=== PATIENT | female | born 1965 | race Caucasian/White ===

== ENCOUNTER → 2020-03-16 12:29 | Outpatient (CLI) | payer OTHER, SELFPAY ==
--- NOTE | ~2020-03-16 | MM_ITS ---
EXAMINATION: MM screening [facility] BI w jose david HISTORY: Screening TECHNIQUE: Craniocaudal and mediolateral oblique 3-D tomosynthesis images were obtained and synthetic 2-D images were generated. CAD analysis was submitted and interpreted. COMPARISON: Comparison to multiple prior studies sequentially, with oldest reviewed study dated 08/04. BREAST PARENCHYMAL COMPOSITION: The breasts are extremely dense, which lowers the sensitivity of mamm ography. FINDINGS: There is a radiolucent mass in the upper inner quadrant of the right breast which is obscur ed by dense fibroglandular tissue. There is focal asymmetry medially in the left breast on CC view. IMPRESSION: 1. Right breast mass, upper inner quadrant. Focal left breast asymmetry medially. 2. Additional mammographic views and possible breast ultrasound are recommended. BI-RADS Category 0: Incomplete: Needs additional imaging evaluation. Reviewed, dictated and finalized at location A. IMPRESSION: 1. Right breast mass, upper inner quadrant. Focal left breast asymmetry mediall y. 2. Additional mammographic views and possible breast ultrasound are recommended . BI-RADS Category 0: Incomplete: Needs additional imaging evaluation.
--- NOTE | ~2020-03-16 | DEXA_ITS ---
Bone Density Report Name: Angela Sawyer Age: 54 Sex: Female Ethnicity: White Date of : 1965 Indication: postmenopausal; screening for osteoporosis; height loss; prior fracture; Referring Provider: HARVEY DEE Study: Bone densitometry was performed. Exam Date: March 16, 2020 Accession number: [id number] Bone Density: Region BMD T-score Z-score Classification AP Spine (L1-L4) 0.883 -1.5 -0.4 Osteopenia Femoral Neck (Left) 0.711 -1.2 -0.2 Osteopenia Total Hip (Left) 0.874 -0.6 0.1 Normal Femoral Neck (Right) 0.729 -1.1 0.0 Osteopenia Total Hip (Right) 0.878 -0.5 0.1 Normal Total Hip Mean 0.876 -0.6 0.1 Normal World Health Organization criteria for BMD impression classify patients as: Normal (T-score at or above -1.0), Osteopenia (T-score between -1.0 and -2.5), or Osteoporosis (T-score at or below -2.5). 10-year Fracture Risk: FRAX not reported because: Prior hip or vertebral fracture Treated for osteoporosis Clinical Information Provided by Patient: Have had a previous hip or vertebral fracture Has had a low trauma fracture Is being treated for osteoporosis Has used the following medications: HRT (i.e. estrogen/hormone therapy), Vitamin D, Calcium Patient maximum height was 69 Menopause Age: 53 No regular weight bearing exercise Drinks caffeinated beverages Onset of menses at age 13 Number of children 0 Impression: The patient has low bone mass, based on the Total Spine T-score. The patient has risk factors, including: previous fracture. Discussion: It is important to ask patients whether they are taking their medications and to encourage continued and appropriate compliance with their osteoporosis therapies to reduce fracture risk. It is also important to review their risk factors and encourage appropriate calcium and vitamin D intakes, exercise, fall prevention and other lifestyle measures. Follow-Up: Consider a repeat BMD and Vertebral Fracture Assessment (VFA) exam in 2 years or sooner if medically necessary, to reassess this patient's status. Reported by: RAJWINDER on 03/16/2020 1:14:00 PM. Reviewed, dictated and finalized at location A.
== END ==
PROVIDERS: PCP Family Medicine; Visit Provider Obstetrics & Gynecology Gynecology
DX: Z12.31 Encounter for screening mammogram for malignant neoplasm of breast (principal); Z78.0 Asymptomatic menopausal state; R92.8 Other abnormal and inconclusive findings on diagnostic imaging of breast
CPT/HCPCS: 77063; 77067; 77080

== ENCOUNTER → 2020-03-31 08:20 | Outpatient (CLI) | payer OTHER, SELFPAY ==
--- NOTE | ~2020-03-31 | MMUS_ITS ---
EXAMINATION: MM diagnostic mammo BI, US breast BI complete HISTORY: 03/16/2020 abnormal screening mammogram with report of radiolucent mass in the upper inner rig ht breast and focal asymmetry medially in the left breast on cc view. TECHNIQUE: Additional 3-D tomosynthesis images of both breasts were performed and synthetic 2-D image s were generated. CAD analysis was submitted and interpreted. High resolution bilateral complete [address] st ultrasound was performed. COMPARISON: 03/16/2020 bilateral digital screening mammogram BREAST PARENCHYMAL COMPOSITION: The breasts are extremely dense, which lowers the sensitivity of mamm ography. FINDINGS: MAMMOGRAPHIC FINDINGS: Scattered bilateral benign microcalcifications are noted. Lobular circumscribed up to 2.3 cm opacity (craniocaudal Tomosynthesis image 39/58) is noted in the anterior mid inner right breast. Due to the dense fibroglandular stroma, additional masses cannot be excluded. Bilateral complete ultr asound examination was performed. ULTRASOUND: There are numerous bilateral cysts and complicated cysts, the largest situated on the right at 2:00 2 cm from the nipple, measuring up to 2.3 cm maximal dimension, corresponding to the 2.3 cm circumscri bed mass noted in the inner mid right breast mammographically. There are internal echoes but there is through transmission posterior enhancement, compatible with a complicated cyst. There are multiple probably benign additional smaller simple and complicated cysts and occasional cir cumscribed hypoechoic small lesions of the breasts without internal vascularity or posterior shadowin g. No suspicious mass or shadowing is identified in either breast. IMPRESSION: 1. No mammographic or sonographic evidence of malignancy is identified 2. Multiple probably benign bilateral cysts, complicated cysts and circumscribed hypoechoic lesions; six-month follow-up bilateral breast ultrasound examination is recommended. BI-RADS category 3, probably benign findings. Reviewed, dictated and finalized at location A. IMPRESSION: 1. No mammographic or sonographic evidence of malignancy is identified 2. Multiple probably benign bilateral cysts, complicated cysts and circumscribe d hypoechoic lesions; six-month follow-up bilateral breast ultrasound examinati on is recommended. BI-RADS category 3, probably benign findings.
== END ==
PROVIDERS: PCP Family Medicine; Visit Provider Obstetrics & Gynecology Gynecology
DX: R92.8 Other abnormal and inconclusive findings on diagnostic imaging of breast (principal)
CPT/HCPCS: 76641; 77066

== ENCOUNTER 2020-06-01 02:17 | Outpatient (CLI) | payer OTHER, SELFPAY ==
[2020-06-01 19:47] LABS: SARS-CoV-2 RNA PCR Negative
== END 2020-06-01 02:18 | disposition home or self-care (01) ==
LOC: ANHCOVIDDT 02:17
PROVIDERS: PCP Family Medicine; Visit Provider Internal Medicine Gastroenterology
DX: Z01.818 Encounter for other preprocedural examination (principal); Z20.828 Contact with and (suspected) exposure to other viral communicable diseases
CPT/HCPCS: 87635; C9803; U0003

== ENCOUNTER → 2020-09-14 00:34 | Outpatient (CLI) | payer OTHER, SELFPAY ==
[2020-09-14 19:08] LABS: SARS-CoV-2 RNA PCR Negative
== END ==
PROVIDERS: PCP Family Medicine; Visit Provider Internal Medicine Gastroenterology
DX: Z01.812 Encounter for preprocedural laboratory examination (principal); Z20.822 Contact with and (suspected) exposure to COVID-19
CPT/HCPCS: C9803; U0003; U0005

== ENCOUNTER 2020-09-17 00:05 | Day surgery (SDC) | payer OTHER, SELFPAY ==
[2020-05-31 09:01] VITALS: BMI 21.7
[2020-09-07 14:38] VITALS: BMI 23.4
--- NOTE | 2020-09-17 10:06 | WPDANESEPPF ---
Anes - Initial Pre Proc Eval Procedure: Operation Date: 09/17/20 12:15 Proposed Procedures p Screening Colonoscopy - Prasanth Kulkarni MD Date/Time: 09/17/20 10:06 Surgeon: Prasanth Kulkarni MD Pre Op Diagnosis: Neoplasm Screening Patient Data Age: 55 Gender: F Height: 1.73 m Weight: 70 kg Allergies Allergy/AdvReac Type Severity Reaction Status Date / Time metronidazole Allergy Unknown Rash Verified 09/17/20 10:47 nitrofurantoin Allergy Unknown Rash Verified 09/17/20 10:47 Penicillins Allergy Unknown Rash Verified 09/17/20 10:47 Sulfa (Sulfonamide Allergy Unknown Rash Verified 09/17/20 10:47 Antibiotics) Home Medications Medication Instructions Recorded Confirmed Type sertraline 25 mg tablet 12.5 mg PO DAILY #90 tablet 08/04/19 09/07/20 Rx ospemifene [Osphena] 60 mg PO DAILY 05/31/20 08/02/20 History Patient hx anesthesia problems: none Family hx anesthesia problems: none PMFSH Past Medical History Medical History Anxiety Osteopenia PCOS (polycystic ovarian syndrome) Postmenopausal symptoms Surgical History Surgical History History of lumpectomy of left breast 1994 - benign Family History Family History Grandparent Diabetes mellitus, Onset Age: 89 Family history of cardiovascular disease, Onset Age: 92 Cerebrovascular accident, Onset Age: 91 Family history of Alzheimer's disease, Onset Age: 89 Family history of malignant neoplasm of breast in first degree relative Family history of malignant neoplasm of breast, Onset Age: 92 Mother Carcinoma of colon, Onset Age: 51 Social History Social History Social History: . 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 Gender identity (if verbalized by the patient): Female Spiritual care concerns: No Agree to blood products: Yes Anes - Eval Final PreProcedure Day of Procedure 09/17/20 10:06 Patient weight: normal Heart: regular rate and rhythm Lungs: clear to auscultation and normal air movement Airway: Mallampati scale class II Neurological: alert and oriented Last oral intake: >/= 8 hours ASA classification: II Emergent: no Anesthetic plan: proceed Anesthesia type and monitoring: general GIVS Informed Consent: The patient's anesthetic plan and its attendant risks and benefits were discussed with the patient/family/POA. Questions were solicited and answers provided to the satisfaction of the patient/family/POA.
[2020-09-17 10:48] VITALS: BP 94/68; PULSE 86; RESP 20; TEMP 37; O2SAT 98; BMI 22.8
[2020-09-17] MEDS: LACTATED RINGERS 1,000 ML 150 ML IV CONT (10:56)
--- NOTE | 2020-09-17 12:42 | PM.HPGS ---
History of Present Illness History of Present Illness Consent: Risks, benefits, and alternatives have been discussed and questions answered. Patient agrees to proceed with procedure. Chief complaint: Neoplasm Screening Narrative: Angela Sawyer is a 55 year old female with mother colon cancer, her last colonoscopy ~ 5 years ago. Review of Systems Constitutional: Constitutional: Denies headache(s) and Denies weakness Eyes: Eyes: Denies blurry vision ENT: Reports Normal hearing present, Denies headache(s) and Denies neck pain Cardiovascular: Cardiovascular: Denies chest pain and Denies dyspnea Respiratory: Respiratory: Denies dyspnea Gastrointestinal: Gastrointestinal: Reports no additional gastrointestinal complaints Genitourinary: Genitourinary: Denies dysuria Musculoskeletal: Musculoskeletal: Denies neck pain Integumentary/Breasts: Skin/Breast: Denies dry skin Neurologic: Reports Normal hearing present, Denies headache(s) and Denies weakness Psychiatric: Psychiatric: Denies anxiety Endocrine: Endocrine: Denies change in body appearance Hematologic/Lymphatic: Hematologic/Lymphatic: Denies easy bleeding Allergic/Immunologic: Allergic/Immunologic: Denies urticaria PMFSH Past Medical History Medical History Anxiety Osteopenia PCOS (polycystic ovarian syndrome) Postmenopausal symptoms Surgical History Surgical History History of lumpectomy of left breast 1994 - benign Family History Family History Grandparent Diabetes mellitus, Onset Age: 89 Family history of cardiovascular disease, Onset Age: 92 Cerebrovascular accident, Onset Age: 91 Family history of Alzheimer's disease, Onset Age: 89 Family history of malignant neoplasm of breast in first degree relative Family history of malignant neoplasm of breast, Onset Age: 92 Mother Carcinoma of colon, Onset Age: 51 Social History Social History Social History: . 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 Gender identity (if verbalized by the patient): Female Spiritual care concerns: No Agree to blood products: Yes Meds Home Medications and Allergies Home Medications Medication Instructions Recorded Confirmed Type sertraline 25 mg tablet 12.5 mg PO DAILY #90 tablet 08/04/19 09/07/20 Rx ospemifene [Osphena] 60 mg PO DAILY 05/31/20 08/02/20 History Allergies Allergy/AdvReac Type Severity Reaction Status Date / Time metronidazole Allergy Unknown Rash Verified 09/17/20 10:47 nitrofurantoin Allergy Unknown Rash Verified 09/17/20 10:47 Penicillins Allergy Unknown Rash Verified 09/17/20 10:47 Sulfa (Sulfonamide Allergy Unknown Rash Verified 09/17/20 10:47 Antibiotics) Vital Signs Vital Signs - 24 hr 09/17/20 10:48 Temperature 98.6 F Pulse Rate 86 Respiratory Rate 20 Blood Pressure 94/68 L Pulse Oximetry 98 Exam Const: General: comfortable and no acute distress HENMT: General nose exam: Normal nares present Eyes: General: appearance normal, both eyes and all related structures Neck: Neck: no JVD Resp: Auscultation: clear to auscultation bilaterally Cardio: Rate: regular rate Rhythm: regular rhythm GI: Inspection: non-distended GI Palp: Yes Soft to palpation Skin: General skin exam: normal color Neuro: General: gait normal Speech: normal speech Extrem: General: normal to inspection Psych: Mental Status: mental status gr
[2020-09-17 13:06] VITALS: BP 92/60; PULSE 75; RESP 18; O2SAT 97
[2020-09-17 13:16] VITALS: BP 96/63; PULSE 77; RESP 20; O2SAT 100
[2020-09-17 13:26] VITALS: BP 110/77; PULSE 65; RESP 13; O2SAT 100
== END 2020-09-17 13:32 | disposition home or self-care (01) ==
PROVIDERS: PCP Family Medicine; Visit Provider Internal Medicine Gastroenterology
PROC: 0DJD8ZZ Inspection of Lower Intestinal Tract, Via Natural or Artificial Opening Endoscopic (ICD-10-PCS; CPT 45378; principal; 2020-09-17 12:15)
DX: Z12.11 Encounter for screening for malignant neoplasm of colon (principal); K63.5 Polyp of colon; F41.9 Anxiety disorder, unspecified; M19.90 Unspecified osteoarthritis, unspecified site; E28.2 Polycystic ovarian syndrome; Z80.0 Family history of malignant neoplasm of digestive organs; K64.8 Other hemorrhoids
CPT/HCPCS: 45380; 88305; J2704; J7120

== ENCOUNTER → 2020-09-28 08:38 | Outpatient (CLI) | payer OTHER, SELFPAY ==
--- NOTE | ~2020-09-28 | US_ITS ---
US breast BI complete 09/28/2020 09:12 Indication: Follow-up bilateral breast masses Procedure: High-resolution ultrasound of both breasts Comparison: 03/31/2020 Findings: Right breast: There are multiple simple and complicated cysts of both breasts. In addition, there are stable benign-appearing masses as follows: 4 mm oval hypoechoic mass at 6:00, 3 cm from the nipple, oval hypoechoic to mass measuring up to 1 cm at 8:00, 7 cm from the nipple, 2 adjacent circumscribed hypoechoic nodules at 11:00, 2 cm from the nipple measuring up to 6 mm maximum dimension. These are a ll stable. Left breast ultrasound: Stable oval hypoechoic 5 mm mass at 3:00, 5 cm from the nipple. Stable oval h ypoechoic 1.4 cm lobulated mass at 8:00, 5 cm from the nipple. Impression: 1: Stable bilateral benign and likely benign breast masses. BI-RADS CATEGORY 3-PROBABLY BENIGN FINDING RECOMMENDATION: Six-month follow-up diagnostic mammogram and bilateral breast ultrasound. Reviewed, dictated and finalized at location A. Impression: 1: Stable bilateral benign and likely benign breast masses. BI-RADS CATEGORY 3-PROBABLY BENIGN FINDING RECOMMENDATION: Six-month follow-up diagnostic mammogram and bilateral breast u ltrasound.
== END ==
PROVIDERS: Visit Provider Obstetrics & Gynecology Gynecology
DX: N63.13 Unspecified lump in the right breast, lower outer quadrant (principal); N63.23 Unspecified lump in the left breast, lower outer quadrant; N63.24 Unspecified lump in the left breast, lower inner quadrant
CPT/HCPCS: 76641

== ENCOUNTER → 2020-12-21 13:54 | Outpatient (CLI) | payer OTHER, SELFPAY ==
--- NOTE | ~2020-12-21 | US_ITS ---
EXAMINATION: US transvaginal DATE: 12/21/2020 14:26 INDICATION: Post menopausal bleeding Comparison:No prior studies for comparison. TECHNIQUE: Multiple endovaginal sonographic images of the pelvis performed. FINDINGS: The uterus measures 5.9 x 2.4 x 3.2 cm. The endometrial complex measures 6 mm. There is flu id in the endometrium in the lower uterus. The right ovary measures 2.7 x 1.1 x 2.4 cm and the left ovary measures 2.3 x 1.8 x 1.1 cm. There ar e small follicles in each ovary. Normal doppler signal in both ovaries. There is no free fluid in the pelvis. There are no abnormal masses seen on either side. IMPRESSION: 1. Thickened endometrium with fluid in the lower uterine segment. The differential diagnosis includes endometrial hyperplasia, polyp and carcinoma. Biopsy is recommended. Reviewed, dictated and finalized at location B. IMPRESSION: 1. Thickened endometrium with fluid in the lower uterine segment. The different ial diagnosis includes endometrial hyperplasia, polyp and carcinoma. Biopsy is recommended.
== END ==
PROVIDERS: Visit Provider Obstetrics & Gynecology Gynecology
DX: N95.0 Postmenopausal bleeding (principal)
CPT/HCPCS: 76830

== ENCOUNTER 2021-02-14 01:46 | Day surgery (SDC) | payer OTHER, SELFPAY ==
[2021-02-07 18:46] VITALS: BMI 23.4
--- NOTE | 2021-02-14 07:31 | WPDHPUPDATE1 ---
History and Physical Update Update Date/Time: 02/14/21 07:31 History and Physical has been reviewed, including an updated exam of the patient. There are NO changes in the patient's condition. Risks, benefits, and alternatives have been discussed and questions answered. Patient agrees to proceed with procedure.
--- NOTE | 2021-02-14 07:31 | PM.HPGS ---
History of Present Illness History of Present Illness Consent: Risks, benefits, and alternatives have been discussed and questions answered. Patient agrees to proceed with procedure. Chief complaint: post menopausal bleeding Narrative: Angela Sawyer is a 55 year old female with an episode of postmenopausal bleeding. Pelvic ultrasound revealed a thickened endometrial lining at 6mm. Was recommended to proceed with D&C hysteroscopy. Risks of infection, bleeding, perforation, and possible pathology were discussed with the patient. Review of Systems Genitourinary: Genitourinary: Reports dyspareunia and Reports vaginal dryness [facility] Past Medical History Medical History (Updated 02/14/21 @ 07:35 by Pascale Ricketts MD) Anxiety Family history of colon cancer in mother Osteopenia PCOS (polycystic ovarian syndrome) Postmenopausal symptoms Status post hysteroscopy distant past for infertility 2015 benign Surgical History Surgical History History of lumpectomy of left breast 1994 - benign Family History Family History Grandparent Diabetes mellitus, Onset Age: 89 Family history of cardiovascular disease, Onset Age: 92 Cerebrovascular accident, Onset Age: 91 Family history of Alzheimer's disease, Onset Age: 89 Family history of malignant neoplasm of breast in first degree relative Family history of malignant neoplasm of breast, Onset Age: 92 Mother Carcinoma of colon, Onset Age: 51 Social History Social History Social History: . 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 Gender identity (if verbalized by the patient): Female Spiritual care concerns: No Agree to blood products: Yes Meds Home Medications and Allergies Home Medications Medication Instructions Recorded Confirmed Type ospemifene [Osphena] 60 mg PO DAILY 05/31/20 02/07/21 History Adult One Daily Multivitamin 1 tab-cap PO DAILY 02/07/21 02/07/21 History Fish Oil 1 tab-cap PO DAILY 02/07/21 02/07/21 History sertraline 25 mg tablet 12.5 mg PO DAILY #90 tablet 02/08/21 Rx Allergies Allergy/AdvReac Type Severity Reaction Status Date / Time metronidazole Allergy Unknown Rash Verified 02/07/21 18:16 nitrofurantoin Allergy Unknown Rash Verified 02/07/21 18:16 Penicillins Allergy Unknown Rash Verified 02/07/21 18:16 Sulfa (Sulfonamide Allergy Unknown Rash Verified 02/07/21 18:16 Antibiotics) codeine AdvReac Unknown Abdominal Verified 02/07/21 18:16 Pain Exam Const: General: healthy appearing and alert Orientation/consciousness: patient oriented x3 Resp: Effort & Inspection: normal respiratory effort Auscultation: clear to auscultation bilaterally Cardio: Rate: regular rate Rhythm: regular rhythm GI: GI Palp: Yes Soft to palpation, No Tenderness to palpation present (GI) and No Palpable mass present : External Female Exam: normal external appearance and other (atrophic) Speculum Exam - Vagina: normal vaginal discharge Speculum Exam - Cervix: normal appearance of the cervix Bimanual exam- vagina & uterus: uterine size normal and consistency normal Bimanual Exam- Adnexa, other: normal adnexae and No adnexal tenderness Neuro: General: patient oriented x3 Assessment and Plan Assessment and plan (1) Post-menopausal bleeding: Code(s): N95.0 - Postmenopausal bleeding Status: A
[2021-02-14 08:00] VITALS: BP 108/71; PULSE 56; RESP 14; TEMP 37.4; O2SAT 100
[2021-02-14] MEDS: ACETAMINOPHEN 500 MG TABLET 1000 MG PO (08:12)
[2021-02-14 08:14] VITALS: BMI 23.4
--- NOTE | 2021-02-14 08:27 | WPDANESEPPF ---
Anes - Initial Pre Proc Eval Procedure: Operation Date: 02/14/21 09:30 Proposed Procedures p Hysteroscopy Dilation and Curettage - Pascale Ricketts MD Date/Time: 02/14/21 08:27 Surgeon: Pascale Ricketts MD Pre Op Diagnosis: post menopausal bleeding Patient Data Age: 55 Gender: F Height: 1.73 m Weight: 70.05 kg Allergies Allergy/AdvReac Type Severity Reaction Status Date / Time metronidazole Allergy Unknown Rash Verified 02/07/21 18:16 nitrofurantoin Allergy Unknown Rash Verified 02/07/21 18:16 Penicillins Allergy Unknown Rash Verified 02/07/21 18:16 Sulfa (Sulfonamide Allergy Unknown Rash Verified 02/07/21 18:16 Antibiotics) codeine AdvReac Unknown Abdominal Verified 02/07/21 18:16 Pain Home Medications Medication Instructions Recorded Confirmed Type ospemifene [Osphena] 60 mg PO DAILY 05/31/20 02/07/21 History Adult One Daily Multivitamin 1 tab-cap PO DAILY 02/07/21 02/07/21 History Fish Oil 1 tab-cap PO DAILY 02/07/21 02/07/21 History sertraline 25 mg tablet 12.5 mg PO DAILY #90 tablet 02/08/21 Rx Patient hx anesthesia problems: none Family hx anesthesia problems: none PMFSH Past Medical History Medical History (Updated 02/14/21 @ 07:35 by Pascale Ricketts MD) Anxiety Family history of colon cancer in mother Osteopenia PCOS (polycystic ovarian syndrome) Postmenopausal symptoms Status post hysteroscopy distant past for infertility 2015 benign Surgical History Surgical History History of lumpectomy of left breast 1994 - benign Family History Family History Grandparent Diabetes mellitus, Onset Age: 89 Family history of cardiovascular disease, Onset Age: 92 Cerebrovascular accident, Onset Age: 91 Family history of Alzheimer's disease, Onset Age: 89 Family history of malignant neoplasm of breast in first degree relative Family history of malignant neoplasm of breast, Onset Age: 92 Mother Carcinoma of colon, Onset Age: 51 Social History Social History Social History: . 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 Gender identity (if verbalized by the patient): Female Spiritual care concerns: No Agree to blood products: Yes Anes - Eval Final PreProcedure Day of Procedure 02/14/21 08:27 Patient weight: normal Heart: regular rate and rhythm Lungs: clear to auscultation and normal air movement Airway: Mallampati scale class II Neurological: alert and oriented Last oral intake: >/= 8 hours ASA classification: II Emergent: no Anesthetic plan: proceed Anesthesia type and monitoring: general GIVS Informed Consent: The patient's anesthetic plan and its attendant risks and benefits were discussed with the patient/family/POA. Questions were solicited and answers provided to the satisfaction of the patient/family/POA.
[2021-02-14] MEDS: LACTATED RINGERS 1,000 ML 30 ML IV CONT (08:28)
[2021-02-14] MEDS: LIDOCAINE HCL 1% LOCAL INJ 20 ML VIAL 10 ML INFILTRATE (09:15)
[2021-02-14 09:31] VITALS: BP 109/69; PULSE 54; RESP 12; O2SAT 99
--- NOTE | 2021-02-14 09:33 | W.PM.PROC2 ---
Procedure Note - Detailed Date of Procedure 02/14/21 Pre-op Diagnosis post menopausal bleeding Post-op Diagnosis same Procedure Performed D and C hysteroscopy with MyoSure resection of endocervical polyp Surgeon Pascale Ricketts MD Anesthesia MAC and local Findings polyp noted at the anterior cervix near the endocervical junction ; atrophic endometrium Description of Procedure the patient was taken to the operating room and placed under anesthesia in the dorsal lithotomy position. She was prepped and draped in the usual sterile fashion. [place] speculum was placed in the vagina and the cervix was grasped on the anterior lip with a tenaculum. The cervix is injected with 1% lidocaine in each quadrant. The external os is stenotic therefore the os Finders are used the uterus is then sounded to 6cm. The cervix is serially dilated. The hysteroscope was placed with the stated findings. The polyp forceps are used to attempt removal of the endocervical polyp but this is not successful. The MyoSure device is opened in placed and the polyp was removed under direct visualization. The hysteroscope was removed and the endometrium curetted with a small curette minimal materials obtained consistent with the atrophic appearance. All instruments are removed. Sponge, instrument, and needle counts are correct per the OR staff. The patient is awakened from anesthesia and taken to recovery room in stable condition. Estimated Blood Loss 5 Drains No Packing No Pathology yes ( endometrial curettings and endocervical polyp) Complications No immediate complications Condition stable Disposition PACU
[2021-02-14 09:45] VITALS: BP 101/64; PULSE 50; RESP 14; O2SAT 100
[2021-02-14 10:15] VITALS: BP 106/69; PULSE 58; RESP 20
[2021-02-14 10:30] VITALS: BP 110/71; PULSE 46; RESP 20
== END 2021-02-14 10:38 | disposition home or self-care (01) ==
PROVIDERS: PCP Family Medicine; Visit Provider Obstetrics & Gynecology Gynecology
PROC: 0U5B8ZZ Destruction of Endometrium, Via Natural or Artificial Opening Endoscopic (ICD-10-PCS; CPT 58563; principal; 2021-02-14 09:30)
DX: N95.0 Postmenopausal bleeding (principal); N84.1 Polyp of cervix uteri; E28.2 Polycystic ovarian syndrome; M85.80 Other specified disorders of bone density and structure, unspecified site; F41.9 Anxiety disorder, unspecified
CPT/HCPCS: 58558; 88305; A9270; J2250; J2405; J2704; J3010; J7030; J7120

== ENCOUNTER → 2021-05-18 09:27 | Outpatient (CLI) | payer OTHER, SELFPAY ==
--- NOTE | ~2021-05-18 | MMUS_ITS ---
EXAMINATION: MM diagnostic agustin BI w jose david, US breast BI complete HISTORY: Follow-up breast masses TECHNIQUE: Additional 3-D tomosynthesis images of the breasts were performed and synthetic 2-D images were generated. CAD analysis was submitted and interpreted. High resolution bilateral complete breas t ultrasound was performed. COMPARISON: Comparison to multiple prior studies sequentially, with oldest reviewed study dated 08/04. BREAST PARENCHYMAL COMPOSITION: The breasts are extremely dense, which lowers the sensitivity of mamm ography. FINDINGS: MAMMOGRAPHIC FINDINGS: The breasts are stable. No discrete mass, architectural distortion or suspicious calcification is faustino ntified to suggest malignancy. ULTRASOUND: Complete bilateral US of all 4 quadrants of the breasts and retroareolar region was reviewed. Right breast ultrasound: There are multiple simple and complicated cysts of the right breast, largest at 2:00, 2 cm from the nipple. In addition, there are multiple oval hypoechoic masses with parallel orientation, no significant posterior features or internal vascularity including an 8 mm mass at 8:00 , 7 cm from the nipple, at 11:00, 3 cm from the nipple measuring 9 mm and a bilobed mass at 11:00, 2 cm from the nipple, all without significant interval change. Left breast ultrasound: At 3:00, 5 cm from the nipple, there is an oval hypoechoic mass measuring 5 m m with parallel orientation, no significant posterior features and no internal vascularity, unchanged . At 8:00, 5 cm from the nipple there is an oval hypoechoic mass with circumscribed margins, parallel orientation measuring 9 mm greatest dimension, without significant change. There is an adjacent 8 mm mass with similar characteristics without significant change from prior study. At 10:00, 3 cm from t he nipple there is a 4 mm cyst. IMPRESSION: 1. Stable benign-appearing bilateral breast masses. 2. 12 month follow-up bilateral breast ultrasound and screening mammogram recommended. BI-RADS category 3, probably benign findings. Reviewed, dictated and finalized at location A. IMPRESSION: 1. Stable benign-appearing bilateral breast masses. 2. 12 month follow-up bilateral breast ultrasound and screening mammogram recom mended. BI-RADS category 3, probably benign findings.
== END ==
PROVIDERS: PCP Family Medicine; Visit Provider Obstetrics & Gynecology Gynecology
DX: R92.8 Other abnormal and inconclusive findings on diagnostic imaging of breast (principal)
CPT/HCPCS: 76641; 77062; 77066; G0279

== ENCOUNTER → 2021-09-05 16:05 | Outpatient (CLI) | payer OTHER, SELFPAY ==
--- NOTE | ~2021-09-05 | US_ITS ---
EXAMINATION: US transvaginal DATE: 09/05/2021 16:25 INDICATION: Left adnexal pain Comparison:Ultrasound dated 12/21/2020 TECHNIQUE: Multiple transabdominal sonographic images of the pelvis performed. FINDINGS: The uterus measures 5.6 x 2.5 x 3.1 cm. The endometrial complex measures 3 mm. The right ovary is unremarkable measuring 2.1 x 2 x 1.4 cm. The left ovary is not visualized. There is no free fluid in the pelvis. There are no abnormal masses seen on either side. IMPRESSION: 1. Unremarkable pelvic ultrasound. Reviewed, dictated and finalized at location B. 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
== END ==
PROVIDERS: PCP Family Medicine; Visit Provider Nurse Practitioner
DX: R10.2 Pelvic and perineal pain (principal)
CPT/HCPCS: 76830

== ENCOUNTER 2024-12-11 09:20 | Outpatient (CLI) | payer BC, SELFPAY ==
--- NOTE | ~2024-12-11 | DEXA_ITS ---
Bone Density Report Name: BABITA LACEY Age: 59 Sex: Female Ethnicity: White Date of : 1965 Indication: osteopenia; height loss; prior fracture; Referring Provider: HARVEY EDE Study: Bone densitometry was performed. Exam Date: December 11, 2024 Accession number: [id number] Bone Density: Region BMD T-score Z-score Classification AP Spine(L1-L4) 0.808 -2.2 -0.8 Osteopenia Femoral Neck (Left) 0.645 -1.8 -0.6 Osteopenia Total Hip (Left) 0.804 -1.1 -0.2 Osteopenia Femoral Neck (Right) 0.690 -1.4 -0.2 Osteopenia Total Hip (Right) 0.829 -0.9 0.0 Normal Total Hip Mean 0.817 -1.0 -0.1 Normal World Health Organization criteria for BMD impression classify patients as: Normal (T-score at or above -1.0), Osteopenia (T-score between -1.0 and -2.5), or Osteoporosis (T-score at or below -2.5). 10-year Fracture Risk: FRAX not reported because: Prior hip or vertebral fracture Previous Exams: -- Region Exam Age BMD T-score BMD Change BMD Change Date g/cm2 vs Baseline vs Previous -- AP Spine (L1-L4) 12/11/2024 59 0.808 -2.2 -8.5%* -8.5%* 03/16/2020 54 0.883 -1.5 Total Hip(Left) 12/11/2024 59 0.804 -1.1 -8.0%* -8.0%* 03/16/2020 54 0.874 -0.6 Total Hip(Right) 12/11/2024 59 0.829 -0.9 -5.5%* -5.5%* 03/16/2020 54 0.878 -0.5 -- *Denotes significance at 95% confidence level, LSC for AP Spine = 0.022 g/cm2, LSC for Total Hip = 0.027 g/cm2 Clinical Information Provided by Patient: Have had a previous hip or vertebral fracture Has had a low trauma fracture Patient maximum height was 69 Menopause Age: 53 Drinks caffeinated beverages Onset of menses at age 13 Number of children 0 Impression: The patient has low bone mass, based on the Total Spine T-score. The patient has risk factors, including: previous fracture. The BMD for the AP Spine (L1-L4) decreased, changing by -8.5% since the last DXA exam. The BMD for the Total Hip(Left) decreased, changing by -8.0% since the last DXA exam. The BMD for the Total Hip(Right) decreased, changing by -5.5% since the last DXA exam. Discussion: INCREASED RISK OF FRACTURE DUE TO HISTORY OF FRACTURE. The patient's previous fracture puts the patient at high risk of a future fracture. In untreated patients, the risk of osteoporotic fracture increases approximately two-fold for each 1.0 SD decrease in T-score. Low bone density is not the only risk factor for fracture; also consider factors such as patient's age, frailty or poor health, risk of falling, risk of injury, previous osteoporotic fracture, family history of osteoporosis, cigarette smoking, low body weight, etc. Not everyone with a low trauma fracture has osteoporosis; osteomalacia and other metabolic bone disorders should also be considered. Patients who have osteoporosis should be evaluated for specific diseases and conditions (secondary causes) that may cause or contribute to bone loss and fracture risk. National Osteoporosis Foundation (NOF) recommends pharmacologic intervention for patients with a prior hip or vertebral fracture regardless of BMD T-score. The patient should follow a healthful lifestyle (good nutrition with adequate calcium and vitamin D, and appropriate weight-bearing exercise). Follow-Up: Consider a repeat BMD and Vertebral Fracture Assessment (VFA) exam in 2 years or sooner if medically necessary, to reassess this patient's status. Reported by: RAJWINDER on 12/11/2024 9:41:00 AM. Reviewed, dictated and finalized at location A.
== END 2024-12-11 09:21 | disposition home or self-care (01) ==
PROVIDERS: PCP Physician Assistant; Visit Provider Obstetrics & Gynecology Gynecology
DX: Z78.0 Asymptomatic menopausal state (principal); M85.88 Other specified disorders of bone density and structure, other site; M85.852 Other specified disorders of bone density and structure, left thigh; M85.851 Other specified disorders of bone density and structure, right thigh
CPT/HCPCS: 77080